=== PATIENT | male | born 1995 | race Asian ===

== ENCOUNTER 2019-09-17 06:19 | Day surgery (SDC) | payer MEDICAID ==
[~2019-09-17] VITALS: Ht 165.1 cm; Wt 99.5 kg
[~2019-09-17 06:19] MED LIST: BUPIVACAINE/PF 0.5% ONE; EPINEPHRINE 1 MG/ML, 1ML ONE; LIDOCAINE/PF 1%-EPI 1:200K, 30 ML ONE
[2019-09-17 06:42] VITALS: BP 123/87
[2019-09-17] MEDS ORDERED: LACTATED RINGERS 1,000 ML IV SCH (06:45)
[2019-09-17] MEDS ORDERED: SCOPOLAMINE PATCH, 1.5MG PATCH.TD72 TD ONE (07:00)
[2019-09-17] MEDS ORDERED: ACETAMINOPHEN 500 MG TABLET PO ONE (07:00)
[2019-09-17] MEDS ORDERED: OxyconTIN ER 20 MG TAB.ER PO ONE (07:00)
[2019-09-17] MEDS ORDERED: DIAZEPAM 5 MG TABLET PO ONE (07:00)
[2019-09-17] MEDS ORDERED: GABAPENTIN 300 MG CAPSULE PO ONE (07:00)
[2019-09-17] MEDS ORDERED: [UNRECOGNIZED DRUG - REMARK] (07:01)
[2019-09-17] MEDS ORDERED: FENTANYL PF 250 MCG/5ML ONE (08:15)
[2019-09-17] MEDS ORDERED: MIDAZOLAM 1 MG/ML, 2ML ONE (08:15)
[2019-09-17] MEDS ORDERED: FENTANYL PF 100 MCG/2ML IV PRN (11:00)
[2019-09-17] MEDS ORDERED: hydrALAzine 20 MG/ML, 1ML IV PRN (11:00)
[2019-09-17] MEDS ORDERED: MEPERIDINE/PF 25MG/ML,1ML IVPush PRN (11:00)
[2019-09-17] MEDS ORDERED: ALBUTEROL/IPRATROPIUM 2.5MG/0.5MG, 3 ML NPPB PRN (11:00)
[2019-09-17] MEDS ORDERED: PROMETHAZINE 25 MG/ML, 1ML IV PRN (11:00)
[2019-09-17] MEDS ORDERED: OXYcodone 5 MG/5 ML ORAL.SOL UDC PO PRN (11:00)
[2019-09-17] MEDS ORDERED: METOPROLOL 1 MG/ML, 5ML IV PRN (11:00)
[2019-09-17] MEDS ORDERED: MIDAZOLAM 1 MG/ML, 2ML IV PRN (11:00)
[2019-09-17] MEDS ORDERED: CEFAZOLIN 1,000 MG ONE (11:42)
[2019-09-17] MEDS ORDERED: ONDANSETRON 2MG/ML, 2ML ONE (11:42)
[2019-09-17] MEDS ORDERED: PROPOFOL 10 MG/ML, 20ML ONE (11:42)
[2019-09-17] MEDS ORDERED: DEXAMETHASONE 4 MG/ML, 1ML ONE (11:42)
[2019-09-17] MEDS ORDERED: LIDOCAINE-MPF 2% ,5ML ONE (11:42)
[2019-09-17] MEDS ORDERED: BUPIVACAINE/PF 0.5% ONE (11:42)
[2019-09-17] MEDS ORDERED: KETOROLAC 30 MG/1 ML ONE (11:43)
[2019-09-17] MEDS ORDERED: HYDROmorphone 1 MG/ML, 1ML VIAL ONE (13:08)
[2019-09-17] MEDS ORDERED: FENTANYL PF 100 MCG/2ML ONE (13:08)
[2019-09-17] MEDS: HYDROmorphone 2 MG/ML, 1ML IVPush PRN ×2 (13:17→13:24)
== END 2019-09-17 16:45 | disposition home or self-care (01) ==
LOC: OUT 06:19
PROVIDERS: ATTEND Orthopaedic Surgery
DX: S83.512A Sprain of anterior cruciate ligament of left knee, initial encounter (principal); S83.212A Bucket-handle tear of medial meniscus, current injury, left knee, initial encounter; S83.282A Other tear of lateral meniscus, current injury, left knee, initial encounter; M94.262 Chondromalacia, left knee; M17.12 Unilateral primary osteoarthritis, left knee; E66.9 Obesity, unspecified; Z68.36 Body mass index [BMI] 36.0-36.9, adult; X58.XXXA Exposure to other specified factors, initial encounter; Z87.891 Personal history of nicotine dependence; Y93.89 Activity, other specified; Y92.89 Other specified places as the place of occurrence of the external cause; Y99.8 Other external cause status
CPT/HCPCS: 29879; 29880; 29888; 64447; C1713; J0171; J0690; J1100; J1170; J1885; J2250; J2405; J2704; J3010; J3490; J7120